=== PATIENT | female | born 1985 | race Hispanic/Latino ===

== ENCOUNTER 2018-07-30 21:31 | Emergency (ER) | payer SELFPAY ==
[2018-07-30 22:01] LABS: APPEARANCE,URINE Clear (CLEAR); BILIRUBIN,URINE Negative (NEGATIVE); COLOR,URINE Dark Yellow (YELLOW); GLUCOSE, URINE (UA) Negative (NEGATIVE); KETONES,URINE 40 mg/dL (NEGATIVE); LEUKOCYTE ESTERASE ,URINE Negative (NEGATIVE); NITRATE,URINE Negative (NEGATIVE); OCCULT BLOOD,URINE Large (NEGATIVE); PROTEIN,URINE POS 1+ mg/dL (NEGATIVE)
[2018-07-30 22:08] LABS: BASOPHILS % (AUTO) 0.5 % (0.0-5.0); EOSINOPHILS % (AUTO) 0.2 % (0.0-8.0); HEMATOCRIT 41.9 % (36-48); MEAN CORPUSCULAR HEMOGLOBIN 30.1 pg (27.0-33.0); MEAN CORPUSCULAR HGB CONC 34.1 g/dL (32.0-36.0); MEAN CORPUSCULAR VOLUME 88.3 fL (79-99); MONOCYTES % (AUTO) 9.2 % (3.0-13.0); NEUTROPHILS % (AUTO) 66.1 % (40.0-77.0); NUCLEATED RED BLOOD CELLS 0.1 % (0.0-0.19); PLATELET COUNT (AUTO) 234 K/uL (130-400); RED BLOOD CELL COUNT(AUTO) 4.75 MIL/uL (4.00-5.50); RED CELL DISTRIBUTION WIDTH 14.6 % (11.0-15.5); WHITE BLOOD COUNT (AUTO) 5.1 K/uL (4.8-10.8)
[2018-07-30 22:19] LABS: CREATININE 0.8 mg/dL (0.5-1.5); POTASSIUM 3.5 mmol/L (3.5-5.1)
[2018-07-30 22:24] LABS: ALBUMIN 3.6 g/dL (3.5-5.0); BILIRUBIN,TOTAL 0.3 mg/dL (0.2-1.0); TOTAL PROTEIN, SERUM 8.1 g/dL (6.0-8.3)
[2018-07-30 22:29] LABS: HCG,QUAL RESULT NEGATIVE (NEGATIVE)
[2018-07-30 22:32] LABS: AMORPHOUS SEDIMENT,UR Moderate /LPF (None Seen); BACTERIA,URINE Moderate /HPF (None Seen); MUCUS,URINE Many LPF (None Seen); SQUAMOUS EPITHELIAL CELL,UR Moderate /HPF (0-2)
[2018-07-30] MEDS ORDERED: DiphenhydrAMINE HCL 50 MG/ML VIAL ONE (22:35)
[2018-07-30] MEDS ORDERED: METOCLOPRAMIDE 10 MG/2 ML VIAL ONE (22:35)
== END 2018-07-31 01:05 | disposition home or self-care (01) ==
LOC: EDH 21:31
DX: G43.909 Migraine, unspecified, not intractable, without status migrainosus (principal); Z98.890 Other specified postprocedural states
CPT/HCPCS: 36415; 70450; 80053; 81001; 81025; 85025; 96374; 96375; 99285; J1200; J2765

== ENCOUNTER 2020-06-05 05:30 | Observation (INO) | payer MEDICAID ==
[2020-06-04 11:33] LABS: BASOPHILS % (AUTO) 0.5 % (0.0-5.0); EOSINOPHILS % (AUTO) 1.8 % (0.0-8.0); HEMATOCRIT 41.5 % (36-48); LYMPHOCYTES % (AUTO) 22.7 % (21.0-51.0); MEAN CORPUSCULAR HEMOGLOBIN 29.1 pg (27.0-33.0); MEAN CORPUSCULAR HGB CONC 32.3 g/dL (32.0-36.0); MONOCYTES % (AUTO) 7.6 % (3.0-13.0); NEUTROPHILS % (AUTO) 67.1 % (40.0-77.0); PLATELET COUNT (AUTO) 338 K/uL (130-400); RED BLOOD CELL COUNT(AUTO) 4.61 MIL/uL (4.00-5.50); RED CELL DISTRIBUTION WIDTH 13.9 % (11.0-15.5); WHITE BLOOD COUNT (AUTO) 9.7 K/uL (4.8-10.8)
[2020-06-04 13:38] VITALS: BP 140/77
[2020-06-05] VITALS (23 sets, daily range): BP systolic 97–149; BP diastolic 56–88
[~2020-06-05] VITALS: Ht 152.4 cm; Wt 88.7 kg
[2020-06-05] MEDS ORDERED: CEFAZOLIN SODIUM 1 GM VIAL ONE (05:48)
[2020-06-05] MEDS ORDERED: LACTATED RINGERS 1000ML 1,000 ML IV ONE (05:48)
[2020-06-05] MEDS: CEFAZOLIN SODIUM 1 GM VIAL IVP ONE ×2 (06:04→08:40)
[2020-06-05] MEDS ORDERED: SCOPOLAMINE HYDROBROMIDE 1 EACH ADH..PATCH TD ONE (07:19)
[2020-06-05] MEDS ORDERED: LIDOCAINE PF 2% 5ML ABBOJECT ONE (07:26)
[2020-06-05] MEDS ORDERED: PROPOFOL 10 MG/ML 20ML VIAL IV ONE (07:26)
[2020-06-05] MEDS ORDERED: SUCCINYLCHOLINE CHLORIDE 20 MG/ML 10 ML VIAL ONE (07:26)
[2020-06-05] MEDS ORDERED: FENTANYL CITRATE PF 50 MCG/1 ML 2ML VIAL ONE (07:27)
[2020-06-05] MEDS ORDERED: ROCURONIUM 10MG/1ML SYR 10 MG/ML ML ONE (07:27)
[2020-06-05] MEDS ORDERED: MIDAZOLAM HCL 1 MG/ML 2ML VIAL ONE (08:17)
[2020-06-05] MEDS ORDERED: ONDANSETRON HCL 4 MG/2 ML VIAL ONE (08:19)
[2020-06-05] MEDS ORDERED: LACTATED RINGERS 1000ML 1,000 ML IV SCH (09:00)
[2020-06-05] MEDS ORDERED: GLYCOPYRROLATE 1 MG/5 ML SYRINGE ONE (09:13)
[2020-06-05] MEDS ORDERED: SODIUM CHLORIDE 0.9% 10 ML VIAL ONE (09:36)
[2020-06-05] MEDS ORDERED: PHENYLEPHRINE HCL 10 MG/ML 1ML VIAL IV ONE (09:36)
[2020-06-05] MEDS ORDERED: NEOSTIGMINE 5MG/5ML SYR IV ONE (10:34)
[2020-06-05] MEDS ORDERED: DEXAMETHASONE SOD PHOSPHATE 10MG/ML 1ML VIAL ONE (10:39)
[2020-06-05] MEDS ORDERED: MEPERIDINE-PF 25 MG/ML SYG ONE ×2 (10:40→11:18)
[2020-06-05] MEDS ORDERED: PROMETHAZINE HCL 25 MG/ML 1ML AMPULE IM PRN (12:15)
[2020-06-05] MEDS ORDERED: ONDANSETRON HCL 4 MG/2 ML VIAL IVP PRN (12:15)
[2020-06-05] MEDS ORDERED: ACETAMINOPHEN-CODEINE 300/30MG TAB PO PRN (12:15)
[2020-06-05] MEDS ORDERED: BISACODYL 10 MG SUPP.RECT RC PRN (12:15)
[2020-06-05] MEDS ORDERED: IBUPROFEN 600 MG TABLET PO PRN (12:15)
[2020-06-05] MEDS: PROMETHAZINE HCL 25 MG/ML 1ML AMPULE IM PRN ×2 (12:18→15:05)
[2020-06-05] MEDS: MEPERIDINE-PF 75 MG/ML SYG IM PRN ×2 (12:18→15:06)
[2020-06-05] MEDS: DEXTROSE 5 %-0.45 % NACL 1,000 ML IV PRN ×2 (12:18→21:03)
[2020-06-05] MEDS: SIMETHICONE 80 MG TAB.CHEW PO PRN (21:01)
[2020-06-05] MEDS: DOCUSATE SODIUM 100 MG CAP PO PRN (21:01)
[2020-06-06 03:43] VITALS: BP 117/68
[2020-06-06] MEDS: DEXTROSE 5 %-0.45 % NACL 1,000 ML IV PRN (05:18)
[2020-06-06 05:39] LABS: HEMATOCRIT 36.1 % (36-48); MEAN CORPUSCULAR HEMOGLOBIN 29.2 pg (27.0-33.0); MEAN CORPUSCULAR HGB CONC 32.4 g/dL (32.0-36.0); RED BLOOD CELL COUNT(AUTO) 4.01 MIL/uL (4.00-5.50); RED CELL DISTRIBUTION WIDTH 14.1 % (11.0-15.5); WHITE BLOOD COUNT (AUTO) 19.4 K/uL (4.8-10.8)
[2020-06-06 07:22] VITALS: BP 111/61
[2020-06-06] MEDS ORDERED: ACETAMINOPHEN-CODEINE 300/30MG TAB PO PRN (09:00)
[2020-06-06] MEDS ORDERED: HYDROCODONE/ACETAMINOPHEN 5/325 MG TAB PO PRN (09:00)
[2020-06-06] MEDS: DOCUSATE SODIUM 100 MG CAP PO PRN (09:15)
[2020-06-06] MEDS: SIMETHICONE 80 MG TAB.CHEW PO PRN (09:15)
[2020-06-06 11:19] VITALS: BP 121/72
== END 2020-06-06 13:45 | disposition home or self-care (01) ==
LOC: DAH 05:30 → DAHIP 05:31 → DAH 05:31 → WSH 12:00
PROVIDERS: ADMIT Obstetrics & Gynecology; ATTEND Obstetrics & Gynecology
DX: D25.9 Leiomyoma of uterus, unspecified (principal); Z20.822 Contact with and (suspected) exposure to COVID-19; N92.1 Excessive and frequent menstruation with irregular cycle; N73.6 Female pelvic peritoneal adhesions (postinfective); Z90.49 Acquired absence of other specified parts of digestive tract
CPT/HCPCS: 36415 ×2; 58552; 85025; 85027; 86850; 86900; 86901; 88307; 96360; 96361 ×2; 96372; A4215 ×2; A4216; A4221; A4222; A4223; A4351; A4600; A4649 ×3; A4663; A4930; A6260; C1769 ×3; C9803; G0378 ×29; J0330; J0690; J1100; J2001; J2175 ×4; J2250; J2370; J2405; J2550 ×2; J2704; J2710; J3010; J3490; J7030; J7120; U0003